=== PATIENT | male | born 2005 | race Caucasian/White ===

== ENCOUNTER 2025-04-02 20:53 | Emergency (ER) | payer BC, SELFPAY ==
[2025-04-02 20:56] VITALS: BP 141/98; PULSE 100; RESP 18; TEMP 36.4; O2SAT 100
--- NOTE | 2025-04-02 23:28 | ED.GENADULT ---
HPI - General Adult General Chief complaint: Unspecified Stated complaint: concerned for tetanus. 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 Patient notes he has routine pediatric vaccinations. Patient did not get seen for the wound his left arm initially. Patient denies any rapid spreading redness, notes that his wounds are well up and healing with denies any thick or foul-smelling discharge. Patient denies any fevers. Patient denies any confusion. Review of Systems Review of Systems: A 10 system review of systems was completed on the patient and is negative except for what is stated in the HPI. Nursing and ancillary documentation was reviewed. Exam Narrative: CONST: No acute distress. Well nourished. HENMT: Head is normocephalic and atraumatic. Moist mucous membranes. No posterior oropharynx erythema. EYES: No scleral icterus. No conjunctival injection or pallor. PERRL. NECK: No meningeal signs. RESP: Able to speak in full sentences. Normal respiratory effort. CTAB. CARDIO: Regular rate. Regular rhythm. 2+ DP and radial pulses bilaterally. GI: Nondistended. No tenderness to palpation. Soft. : No CVA tenderness to palpation. SKIN: 3 small circumferential wounds to the left upper extremity, the two along the proximal aspect of the forearm appear to be healing appropriately with no discharge, no surrounding erythema, appear overall scarred, no tenderness to palpation, no crepitus, no fluctuance. The 1 small circumferential wound to the distal left humerus region has a overlying scab, skin surrounding erythema, no streaking redness, no fluctuance, discharge, no bleeding, no tenderness to palpation, no crepitus. NEURO: Oriented x3. Moves all extremities. No focal neurological deficits. No tremors. No myoclonus. EXTREM/MSK/BACK: No pedal edema. Active range of motion of the bilateral upper extremities is normal. PSYCH: Normal affect. Course Vital Signs Vital signs: Vital Signs Temperature 97.6 F 04/02/25 20:56 Pulse Rate 100 04/02/25 20:56 Respiratory Rate 18 04/02/25 20:56 Blood Pressure 141/98 H 04/02/25 20:56 Pulse Oximetry 100 04/02/25 20:56 Oxygen Delivery Room Air 04/02/25 20:56 Temperature 97.6 F 04/02/25 20:56 Pulse Rate 100 04/02/25 20:56 Respiratory Rate 18 04/02/25 20:56 Blood Pressure 141/98 H 04/02/25 20:56 Pulse Oximetry 100 04/02/25 20:56 Oxygen Delivery Room Air 04/02/25 20:56 Medical Decision Making MDM Narrative Medical decision making narrative: Patient presents with the above complaint. Initial vitals are remarkable for no significant abnormalities. Physical examination as noted above. Differential diagnosis includes was not limited to: Burn, cellulitis. Very low suspicion for tetany, patient advised on signs symptoms of tetanus and reasons to immediately return to the emergency department, will plan for a patient follow-up with primary care physician in the next few days for a wound recheck strict return precautions to the emergency department. Will provided with a Tdap booster for tetanus prophylaxis and antibiotics for possible cellulitis. Patient was reassessed at the bedside. No changes in physical exam. Patient is in no acute distress. The patient has remained stable throughout the entire ED visit. Counseled patient regarding diagnostic results and potential diagnosis. Anticipatory guidance provided. Patient instructed to follow up with PCP in 24-48 hours for a recheck and informed he can return to the ER for a recheck as well if unable to see PCP. Patient counseled on: false reassurance from an emergency department evaluation; no current evidence of a medical emergency; return immediately for any new, recurrent, worsening, concerning, or refractory symptoms. Patient prescribed doxycycline, Flexeril, Tylenol, Motrin. Prescription sent to preferred pharmacy. Medications discussed with patient. Additional verbal and printed discharge instructions were given and discussed with the patient. Patient verbally acknowledges understanding of condition and discharge instructions. All questions were answered to the patient's satisfaction. Patient is in agreement with the plan of care. The patient is stable for discharge and was discharged without incident. Vital Signs Vital Signs: Vital Signs Temperature 97.6 F 04/02/25 20:56 Pulse Rate 100 04/02/25 20:56 Respiratory Rate 18 04/02/25 20:56 Blood Pressure 141/98 H 04/02/25 20:56 Pulse Oximetry 100 04/02/25 20:56 Oxygen Delivery Room Air 04/02/25 20:56 Temperature 97.6 F 04/02/25 20:56 Pulse Rate 100 04/02/25 20:56 Respiratory Rate 18 04/02/25 20:56 Blood Pressure 141/98 H 04/02/25 20:56 Pulse Oximetry 100 04/02/25 20:56 Oxygen Delivery Room Air 04/02/25 20:56 Discharge Plan Discharge Clinical Impression: Burn Cellulitis Qualifiers: Site of cellulitis: extremity Site of cellulitis of extremity: upper extremity Laterality: left Qualified Code(s): L03.114 - Cellulitis of left upper limb Patient Disposition: Home Condition: Stable Instructions: Antibiotic Form, Cellulitis (ED), Tetanus (ED), Acute Wounds (ED) Additional Instructions: Follow-up with your primary care physician in the next 24-48 hours for a wound recheck and reassessment. Rest and stay well-hydrated. Taking muscle relaxers as prescribed as needed. Take the antibiotics as prescribed to completion. Return immediately to the emergency department for any new or concerning symptoms especially arm spasms, new or concerning difficulty breathing, fever, rapidly spreading redness, thicker foul-smelling discharge coming from the wound, sent increase in pain, or any emergent concerns for life, limb, eyesight. Patient Language: Surinamese Prescriptions: New acetaminophen 500 mg tablet 500 mg PO Q6H PRN (Reason: pain) Qty: 30 0RF ibuprofen 400 mg tablet 400 mg PO Q6H PRN (Reason: pain) Qty: 30 0RF cyclobenzaprine 5 mg tablet 5 mg PO TID PRN (Reason: muscle spasm) Qty: 30 0RF doxycycline hyclate 100 mg capsule 100 mg PO BID 7 Days Qty: 14 0RF Follow-up/Referrals: Andres Leija MD [Physician, Family Practice] - 1 Day PHYSICIAN,PERSONAL FITNESS MANAGER [Primary Care Provider, Internal Medicine] Time of Disposition: 23:47
[2025-04-03] MEDS: TETANUS,DIPHTHERIA,AC PERTUSSIS ADULT (0.5 ML) BOOSTRIX IM (00:58)
[2025-04-03] MEDS: DOXYCYCLINE HYCLATE 100 MG TABLET PO (00:59)
[2025-04-03] MEDS: Please add drug allergy info to patient profile. 1 EACH XX (00:59)
[2025-04-03] MEDS: CYCLOBENZAPRINE HCL 5 MG TABLET PO (00:59)
== END 2025-04-03 01:04 | disposition home or self-care (01) ==
LOC: ANHED 23:52
PROVIDERS: Emergency Provider Student in an Organized Health Care Education/Training Program
DX: L03.114 Cellulitis of left upper limb (principal); T22.032A Burn of unspecified degree of left upper arm, initial encounter; T22.012A Burn of unspecified degree of left forearm, initial encounter; T31.0 Burns involving less than 10% of body surface; Z23 Encounter for immunization; X18.XXXA Contact with other hot metals, initial encounter
CPT/HCPCS: 90471; 90715; 99283; A9270